=== PATIENT | female | born 2000 | race Two or more races ===

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

== ENCOUNTER 2023-01-30 12:12 | Emergency (ER) | payer MEDICAID ==
[~2023-01-30] VITALS: Ht 160 cm; Wt 61.7 kg
[2023-01-30 12:41] VITALS: BP 112/72
[2023-01-30] MEDS ORDERED: TRIA0.02 TOP (14:53)
== END 2023-01-30 15:21 | disposition home or self-care (01) ==
LOC: ER 12:12
DX: L23.9 Allergic contact dermatitis, unspecified cause (principal)

== ENCOUNTER 2023-03-19 12:15 | Inpatient (IN) | payer MEDICAID ==
[~2023-03-19] VITALS: Ht 154.9 cm; Wt 59.0 kg
[~2023-03-19 12:15] MED LIST changes: +TRIA0.02 TOP
[2023-03-19] MEDS ORDERED: BUTORPHANOL TARTRATE 2 MG/1 ML VIAL IV PRN ×2 (12:45)
[2023-03-19] MEDS ORDERED: LIDOCAINE 2%HCL (LOCAL ANESTH.) INJ 20ML MDV IJ PRN (12:45)
[2023-03-19] MEDS ORDERED: LACTATED RINGER'S 1,000 ML IV SCH (12:45)
[2023-03-19] MEDS ORDERED: LACT. RINGERS/OXYTOCIN 20UNITS 500 ML IV ONE ×2 (12:45→13:15)
[2023-03-19] MEDS ORDERED: PROMETHAZINE HCL 25 MG/ML 1ML IV PRN (12:45)
[2023-03-19] MEDS ORDERED: PENICILLIN G POT 5MIL/D5 50ML 50 ML IV ONE (12:45)
[2023-03-19] MEDS ORDERED: PHISODERM TOP SOLN 240ML BTL TOP PRN (12:45)
[2023-03-19] MEDS ORDERED: WITCH HAZEL-GLYCERIN PAD TOP PRN (12:45)
[2023-03-19] MEDS ORDERED: DERMOPLAST 60ML BOTTLE TOP PRN (12:45)
[2023-03-19 13:29] LABS: Basophils # (auto) 0 10 ^3/uL (0-0.2); Eosinophils # (auto) 0 10 ^3/uL (0-0.8); Hemoglobin 10.6 g/dL (12.2-16.2); Lymphocytes # (auto) 2.5 10 ^3/uL (0.4-5.4); Lymphocytes % (auto) 27.1 % (10.0-50.0); Monocytes # (auto) 0.5 10 ^3/uL (0-1.3); Neutrophils # (auto) 6.2 10 ^3/uL (1.6-8.6); Neutrophils % (auto) 66.7 % (37.0-80.0); White Blood Cell 9.3 10^3/uL (4.4-10.8)
[2023-03-19 13:33] LABS: Basophils % (auto) 0.4 % (0.0-2.0); Eosinophils % (auto) 0.5 % (0.0-7.0); Mean Corpuscular Hemoglobin 25.8 pg (28.0-32.0); Mean Corpuscular Hgb Conc. 32.1 g/dL (32.0-36.0); Mean Corpuscular Volume 80.3 fL (80.0-100.0); Monocytes % (auto) 5.3 % (0.0-12.0); Nucleated Red Blood Cells % 0.4 %; Red Blood Cells 4.11 10^6/uL (4.0-5.20); Red Cell Distribution Width 16.8 % (11.8-14.3)
[2023-03-19 13:37] LABS: INR 0.9 (0.9-1.15); Partial Thromboplastin Time 24.8 SEC (24.5-34.5)
[2023-03-19 13:46] LABS: Albumin 2.9 g/dL (3.4-5.0); Potassium 3.8 mmol/L (3.5-5.1); Uric Acid 5.5 mg/dL (2.6-6.0)
[2023-03-19 13:49] LABS: BUN/Creatinine Ratio 11.9 (10.0-20.0); Bilirubin, Total 0.3 mg/dL (0.2-1.0); Total Protein 7.8 g/dL (6.4-8.2)
[2023-03-19 14:05] LABS: Alcohol, Urine < 3.0 mg/dL (0-10); Amphetamine Screen, Urine NEGATIVE (NEGATIVE); Barbiturate Scree,Urine NEGATIVE (NEGATIVE); Benzodiazephine Screen, Urine NEGATIVE (NEGATIVE); Cannabinoid Screen, Urine NEGATIVE (NEGATIVE); Cocaine Screen, Urine NEGATIVE (NEGATIVE); Opiate Scree,Urine NEGATIVE (NEGATIVE); Phencyclidine Screen, Urine NEGATIVE (NEGATIVE)
[2023-03-19] MEDS ORDERED: ePHEDrine SULFATE 50 MG/ML AMP IV ONE (14:15)
[2023-03-19] MEDS ORDERED: fentaNYL CITRATE 100 MCG/2 ML VL IV ONE (14:15)
[2023-03-19] MEDS ORDERED: ROPIVACAINE HCL 200 ML EPI SCH (14:15)
[2023-03-19 14:28] LABS: Urine Bacteria NONE SEEN /hpf (None Seen); Urine Blood Negative /uL (Negative); Urine Hyaline Cast FEW /lpf (0 - 2); Urine Specific Gravity 1.017 (1.001-1.035); Urine WBC 21 /hpf (0 - 5)
[2023-03-19] MEDS ORDERED: ACETAMINOPHEN 325 MG TAB PO PRN (15:15)
[2023-03-19] MEDS ORDERED: ONDANSETRON ODT 4 MG TAB PO PRN (15:15)
[2023-03-19] MEDS ORDERED: IBUPROFEN 600 MG TAB PO PRN (15:15)
[2023-03-19] MEDS ORDERED: PENICILLIN G POTASSIUM 2,500,000 UNITS in D5W 5% 50 ML IV SCH (16:45)
[2023-03-19 19:00] VITALS: BP 115/64
[2023-03-19] MEDS ORDERED: DOCUSATE SOD 100 MG CAP PO SCH (22:00)
[2023-03-19 23:15] VITALS: BP 108/61
[2023-03-20 03:15] VITALS: BP 115/67
[2023-03-20 06:06] LABS: Rubella Antibodies, IgG 3.38 index (Immune >0.99)
[2023-03-20 06:38] LABS: RPR Non Reactive (Non Reactive)
[2023-03-20 06:53] VITALS: BP 100/62
[2023-03-20 09:41] LABS: Monocytes # (auto) 0.7 10 ^3/uL (0-1.3); Nucleated Red Blood Cells % 0.1 %
[2023-03-20 09:43] LABS: Basophils # (auto) 0.1 10 ^3/uL (0-0.2); Basophils % (auto) 0.4 % (0.0-2.0); Eosinophils # (auto) 0.1 10 ^3/uL (0-0.8); Eosinophils % (auto) 0.4 % (0.0-7.0); Hematocrit 32.4 % (36.0-46.0); Hemoglobin 10.2 g/dL (12.2-16.2); Lymphocytes # (auto) 3.3 10 ^3/uL (0.4-5.4); Lymphocytes % (auto) 24.3 % (10.0-50.0); Mean Corpuscular Hemoglobin 25.4 pg (28.0-32.0); Mean Corpuscular Hgb Conc. 31.6 g/dL (32.0-36.0); Mean Corpuscular Volume 80.4 fL (80.0-100.0); Monocytes % (auto) 5.3 % (0.0-12.0); Neutrophils # (auto) 9.4 10 ^3/uL (1.6-8.6); Neutrophils % (auto) 69.6 % (37.0-80.0); Red Blood Cells 4.03 10^6/uL (4.0-5.20); Red Cell Distribution Width 17.1 % (11.8-14.3); White Blood Cell 13.5 10^3/uL (4.4-10.8)
[2023-03-20] MEDS ORDERED: PREN-96 PO ×2 (09:43)
[2023-03-20] MEDS ORDERED: ACETAMINOPHEN 650 mg PER 20.3 mL UD PO PRN (09:45)
[2023-03-20] MEDS ORDERED: IBUPROFEN 100MG/5ML ORAL SUSP 100 MG/5 ML UD PO PRN (09:45)
[2023-03-20] MEDS ORDERED: ACET5SOL5 PO (09:49)
[2023-03-20] MEDS ORDERED: IBUP100S73 PO (09:49)
[2023-03-20] MEDS ORDERED: [UNRECOGNIZED DRUG - CODE] PO (09:51)
[2023-03-20] MEDS ORDERED: PREN1CHW PO (10:38)
[2023-03-20 11:30] VITALS: BP 112/58
[2023-03-20 15:30] VITALS: BP 92/54
== END 2023-03-20 18:00 | disposition home or self-care (01) | DRG 560 ==
LOC: LDRP 12:15 → OBSVTOIN 12:37
PROVIDERS: ADMIT Obstetrics & Gynecology; ATTEND Obstetrics & Gynecology
PROC: 10E0XZZ Delivery of Products of Conception, External Approach (ICD-10-PCS; principal; 2023-03-19)
DX: O99.02 Anemia complicating childbirth (principal); Z37.0 Single live birth; Z3A.38 38 weeks gestation of pregnancy
CPT/HCPCS: 36415; 59025; 59409; 80053; 80307; 81001; 81002; 84550; 85025; 85610; 85730; 86592; 86703; 86762; 86850; 86900; 86901; 87340; 94760; 96360; 96361; 96365; 96366; G0378; J2590; J7060